=== PATIENT | female | born 1960 | race Caucasian/White ===

== ENCOUNTER 2018-12-18 16:17 | Outpatient (CLI) | payer BC ==
--- NOTE | 2018-12-18 16:44 | CT Report ---
Reason: UNSPECIFIED INJURY OF HEAD Procedure Date: 12/18/2018 Accession Number: [id number] / [id number] Procedure: CT - HEAD WO CPT Code: FULL RESULT: EXAM: CT HEAD EXAM DATE: 12/18/2018 04:22 PM. CLINICAL HISTORY: UNSPECIFIED INJURY OF HEAD. COMPARISON: None. TECHNIQUE: Multiaxial CT images were obtained from the foramen magnum to the vertex. Reformats: Sagittal and coronal. IV contrast: None. In accordance with CT protocol optimization, one or more of the following dose reduction techniques were utilized for this exam: automated exposure control, adjustment of mA and/or KV based on patient size, or use of iterative reconstructive technique. FINDINGS: Parenchyma: No intraparenchymal hemorrhage. No evidence of mass, midline shift, or CT findings of infarction. Nunez-white differentiation is distinct. Extraaxial Spaces: Normal for age. No subdural or epidural collections identified. Ventricles: Normal in size and position. Sinuses and Orbits: Imaged paranasal sinuses, orbits, and mastoids show no significant abnormality. Bones: No evidence of fracture or calvarial defect. Other: There is mild right periorbital soft tissue swelling. IMPRESSION: No acute intracranial CT abnormality. [facility] The call report notification system was initiated by Dr. Parish Cox at 04:43 PM on 12/18/2018.
== END 2018-12-18 16:18 | disposition home or self-care (01) ==
LOC: DI 16:17
PROVIDERS: ATTEND Nurse Practitioner Family
DX: S09.90XA Unspecified injury of head, initial encounter (principal)
CPT/HCPCS: 70450

== ENCOUNTER 2019-04-24 12:52 | Outpatient (CLI) | payer BC ==
--- NOTE | 2019-04-27 12:04 | Mammography Report ---
Reason: ROUTINE MAMMO Procedure Date: 04/24/2019 Accession Number: [id number] / [id number] Procedure: MGS - Screening Mammo Dig Bilat CPT Code: Final Report FULL RESULT: EXAM: Screening Mammo Dig Bilat DATE: 04/24/2019 1:13 PM CLINICAL HISTORY: Routine screening TECHNIQUE: (B) - Bilateral CC and MLO views were obtained. COMPARISON: 03/16/2016, 09/04/2013, 03-24, 02/17/2010 PARENCHYMAL PATTERN: (A) - The breasts demonstrate scattered fibroglandular densities bilaterally. FINDINGS: No significant interval change. There are no suspicious masses, calcifications, or areas of distortion. Scattered benign-appearing calcifications are stable. IMPRESSION: Negative examination. BI-RADS category 1. RECOMMENDATION: (ANNUAL) - Recommend routine annual screening mammography. BI-RADS CATEGORY: (1) - Negative. STANDARD QUALIFYING STATEMENTS: 1. This examination was not reviewed with the aid of Computer-Aided Detection (CAD). 2. A negative or benign imaging report should not preclude biopsy if clinically suspicious findings are present. 3. Dense breasts may obscure an underlying neoplasm. 4. This examination was reviewed without the aid of 3D breast imaging (tomosynthesis).
== END 2019-04-24 12:53 | disposition home or self-care (01) ==
LOC: DI.S 12:52
PROVIDERS: ATTEND Physician Assistant
DX: Z12.31 Encounter for screening mammogram for malignant neoplasm of breast (principal)
CPT/HCPCS: 77067

== ENCOUNTER 2019-04-24 12:53 | Outpatient (CLI) | payer BC ==
--- NOTE | 2019-04-25 18:05 | XRAY Report ---
Reason: LOW BACK PAIN Procedure Date: 04/24/2019 Accession Number: [id number] / [id number] Procedure: XRS - Lumbar Spine 2 View CPT Code: Final Report FULL RESULT: EXAM: LUMBOSACRAL SPINE RADIOGRAPHY EXAM DATE: 04/24/2019 01:32 PM. CLINICAL HISTORY: LOW BACK PAIN. COMPARISONS: None. TECHNIQUE: 3 views. FINDINGS: Alignment: No spondylolisthesis or scoliosis. Bones: Five [id number] lumbar vertebral bodies are present. No fractures or bone lesions. Disks: Disk heights are maintained within the lumbosacral spine. Degenerative diskogenic changes of the lower thoracic spine. Facets: Facet arthropathy at the L4/L5 and L5/S1 levels. Sacroiliac Joints: Unremarkable. Soft Tissues: The visualized bowel gas pattern is normal. IMPRESSION: 1. No evidence for acute osseous injury. 2. Facet arthropathy at the L4/L5 and L5/S1 levels. 3. Degenerative diskogenic changes lower thoracic spine. RAD[facility]
== END 2019-04-24 12:54 | disposition home or self-care (01) ==
LOC: DI.S 12:53
PROVIDERS: ATTEND Physician Assistant
DX: M47.816 Spondylosis without myelopathy or radiculopathy, lumbar region (principal); M47.817 Spondylosis without myelopathy or radiculopathy, lumbosacral region; M51.34 Other intervertebral disc degeneration, thoracic region
CPT/HCPCS: 72100

== ENCOUNTER 2019-11-05 15:39 | Outpatient (CLI) | payer BC ==
--- NOTE | 2019-11-05 16:23 | Ultrasound Report ---
PROCEDURE: Duplex Ext Veins Right INDICATIONS: FIRM MASS ON ANTERIOR R LOWER LEG TECHNIQUE: Real-time imaging, as well as color and pulse Doppler interrogation, were performed of the lower extr emity deep veins from the inguinal ligament to the popliteal fossa. COMPARISON: None. FINDINGS: The deep veins are normally compressible, and free of intraluminal thrombus. Color and pu lse Doppler demonstrate normal phasic intraluminal flow. There is normal augmentation response to di stal compression maneuver. There is a focus of heterogeneous echogenicity identified in the anterolateral right calf. It measure s 20 x 9 x 15 mm. There is no increased vascularity. IMPRESSION: 1. No deep venous thrombosis. 2. Focus of echogenicity within the right calf. The latter could be lead customer service representative of hematoma or abs cess in appropriate setting. Recommend clinical correlation to trauma or infection. Reviewed by: Myra Fernandez MD on 11/05/2019 4:21 PM PDT Approved by: Mrya Fernandez MD on 11/05/2019 4:21 PM PDT Station ID: [id number]
== END 2019-11-05 15:40 | disposition home or self-care (01) ==
LOC: DI 15:39
PROVIDERS: ATTEND Nurse Practitioner Family
DX: R93.6 Abnormal findings on diagnostic imaging of limbs (principal)

== ENCOUNTER 2019-11-09 16:33 | Outpatient (CLI) | payer BC | END 2019-11-09 16:34 | disposition home or self-care (01) | LOC: LAB.S 16:33 | PROVIDERS: ATTEND Physician Assistant | DX: R53.83 Other fatigue (principal); Z20.828 Contact with and (suspected) exposure to other viral communicable diseases | CPT/HCPCS: 81599 ==

== ENCOUNTER 2020-11-28 11:02 | Outpatient (CLI) | payer BC ==
--- NOTE | 2020-11-29 13:44 | Mammography Report ---
BILATERAL DIGITAL SCREENING MAMMOGRAM 3D/2D: 11/28/2020 CLINICAL: Family history of breast cancer. Comparison is made to exams dated: 04/24/2019 mammogram, 03/16/2016 mammogram, and 09/04/2013 mammogra m - [facility]. There are scattered fibroglandular elements in both breasts. No significant masses, calcifications, or other findings are seen in either breast. There has been no significant interval change. IMPRESSION: NEGATIVE There is no mammographic evidence of malignancy. A 1 year screening mammogram is recommended. This exam was interpreted at Station ID: [id number]. NOTE: For mammograms, a report in lay terms will be sent to the patient. Approximately 15% of breast malignancies will not be visualized mammographically. In the management of a palpable breast mass, a negative mammogram must not discourage biopsy of a clinically suspicious lesion. Electronically Signed By: Brandon Aceves M.D. slc/penrad:11/28/2020 12:40:01 ACR BI-RADS Category 1: Negative 3341F PARENCHYMAL PATTERN: (A) - The breast(s) demonstrate(s) scattered fibroglandular densities. BI-RADS CATEGORY: (1) - 1 RECOMMENDATION: (ANNUAL) - Recommend routine annual screening mammography. [id number] 1 year screening LATERALITY: (B)
== END 2020-11-28 11:03 | disposition home or self-care (01) ==
LOC: DI.S 11:02
PROVIDERS: ATTEND Nurse Practitioner Family
DX: Z12.31 Encounter for screening mammogram for malignant neoplasm of breast (principal)

== ENCOUNTER 2020-12-27 12:41 | Day surgery (SDC) | payer BC ==
[2020-12-27] MEDS ORDERED: LACTATED RINGERS 1,000 ML IV ONE ×2 (12:47→14:35)
[2020-12-27] MEDS ORDERED: fentaNYL 250 MCG/5 ML VIAL ONE (14:05)
[2020-12-27] MEDS ORDERED: MIDAZOLAM 2 MG/2 ML VIAL ONE (14:05)
[2020-12-27 14:51] VITALS: BP 99/62
== END 2020-12-27 12:42 | disposition home or self-care (01) ==
LOC: SDS 12:41
PROVIDERS: ATTEND Surgery
DX: Z12.11 Encounter for screening for malignant neoplasm of colon (principal); K64.4 Residual hemorrhoidal skin tags; K64.8 Other hemorrhoids; K57.30 Diverticulosis of large intestine without perforation or abscess without bleeding; Z86.010 Personal history of colon polyps
CPT/HCPCS: 45378; J3010; J7120

== ENCOUNTER 2021-01-10 11:34 | Outpatient (CLI) | payer BC ==
[2021-01-10 15:32] LABS: ALBUMIN 4.2 g/dL (3.2-5.5); ALBUMIN/GLOBULIN RATIO 1.3 (1.0-2.2); ALKALINE PHOSPHATASE 91 IU/L (42-121); ALT ALANINE AMINOTRANSFERASE 40 IU/L (10-60); AST ASPARTATE AMINOTRANSFERASE 34 IU/L (10-42); BILIRUBIN,TOTAL 0.8 mg/dL (0.2-1.0); BUN - BLOOD UREA NITROGEN 15 mg/dL (6-20); CALCIUM 9.1 mg/dL (8.5-10.3); CARBON DIOXIDE - CO2 30 mmol/L (21-32); CHLORIDE 102 mmol/L (101-111); CHOL/HDL RATIO 2.7 (<4.4); CHOLESTEROL 170 mg/dL; CREATININE 0.9 mg/dL (0.4-1.0); GFR - MDRD 63 (>89); GLUCOSE 95 mg/dL (70-100); HDL CHOLESTEROL 62 mg/dL; LDL CHOLESTEROL,CALCULATED 92 mg/dL; LDL/HDL RATIO 1.5 (<4.4); SODIUM 139 mmol/L (135-145); TOTAL PROTEIN 7.4 g/dL (6.7-8.2); TRIGLYCERIDES 80 mg/dL; VLDL CHOLESTEROL 16 mg/dL
== END 2021-01-10 11:35 | disposition home or self-care (01) ==
LOC: LAB.S 11:34
PROVIDERS: ATTEND Nurse Practitioner Family
DX: E78.2 Mixed hyperlipidemia (principal)
CPT/HCPCS: 36415; 80053; 80061; 83721

== ENCOUNTER 2023-04-02 10:54 | Outpatient (CLI) | payer MEDICARE ==
--- NOTE | 2023-04-02 11:11 | CARDIAC PROCEDURE NOTE ---
Stress Test Report Service Date: 04/02/23 Service Time: 11:00 Ordering Provider: Birdie Conklin NP Indication for Test: Risk stratification after a prolonged, severe, near-syncopal episode. Significant Medical History: Birdie has been generally in good health with normal functional status, but experienced a severe near syncopal episode in late January. She reports arising at night to urinate, feeling normal prior, during and after, completing voiding. As is sometimes the case in these situations, she felt thirsty and went to get a drink of water. In her kitchen she felt sudden onset of extreme dizziness/lightheadedness with moderate nausea, prompting her to lay down in a head-down position, with symptoms requiring somewhere between 5 and 10 minutes to fully resolve. She did not experience chest discomfort, diaphoresis or palpitations during this episode and after it finally passed she returned to her normal baseline state, went back to bed and has had no severe episodes since. She reports no prior history of syncope, though she did have a significant pre-syncopal episode approximately 5 years ago for which she underwent rhythm monitoring that was unrevealing. 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 She walks up hills regularly without experiencing chest discomfort, though she does find the hills gradually causing her more shortness of breath. Overall she does not believe that her exercise tolerance is decreasing. She just completed a 13-day CAM patch rhythm monitor study, that showed only low grade ectopy and a single brief episode of atrial tachycardia; she had no symptoms to report by pushing the button. Cardiac Risk Factors: Positive for hyperlipidemia (on treatment with high-dose atorvastatin) as well as possible family history of coronary heart disease (mother with CHF of undetermined etiology in later years and both father and brother with history of cardiac arrhythmia issues); no history of hypertension, diabetes or tobacco smoking ever. Type of Stress Test: ETT with Echocardiography Procedure: -Exercise Treadmill Test- After signing informed consent, the patient underwent echo imaging at rest and then performed treadmill exercise using a Farhan protocol. The patient exercised for 4 minutes 57 seconds and achieved a peak heart rate of 150 (97 percent predicted maximum heart rate for age), and an estimated workload of 7 METS. The test was terminated due to fatigue/shortness of breath. Resting heart rate: 72 Peak heart rate: 150 Normal response to exercise. Resting BP: 142/81 Peak BP: 185/80 Normal BP response to exercise. Rhythm during exercise: Sinus rhythm throughout, without ectopy. Symptoms: Patient denied experiencing any chest pressure/discomfort/pain, dyspnea became limiting. EKG at rest showed normal sinus rhythm, normal in all aspects. EKG at peak stress showed no ischemia by EKG criteria. In Recovery heart rate and blood pressure rapidly/normally decreased towards baseline levels (HR 90, BP 147/77 at 3:41). Echo imaging, performed at rest and with stress, will be reported separately. INoam MD, was present throughout this treadmill stress study and supervised it in its entirety. Summary: 1) Exercise tolerance significantly reduced for age and sex as evidenced by MARANDA of 20%. 2) Normal resting EKG. 3) Adequate level of exercise was achieved on this treadmill stress test. 4) Normal BP response to exercise. 5) No ischemic changes by EKG criteria were seen at peak stress. 6) Echo image interpretation reveals normal left ventricular size, wall thickness and systolic function, with appropriate hyperdynamic augmentation of all segments with exercise, indicating no evidence of prior infarct or inducible ischemia. No significant valvular abnormality or elevation of estimated pulmonary artery systolic pressure seen on screening study. See separate report for more details. Conclusions and Recommendations: 1) No symptom, EKG or echocardiographic evidence of inducible ischemia, though exercise capacity was well below average for age. 2) Given the reassuring results obtained on this treadmill stress echocardiogram study and the recently completed 13-day ambulatory cardiac rhythm monitoring study it would be very reasonable to defer formal Cardiology evaluation with Dr. Abbott at the present time. Should she experience repeated near- syncopal/syncopal episodes, then formal clinical Cardiology evaluation would likely be warranted.
== END 2023-04-02 10:55 | disposition home or self-care (01) ==
LOC: DI 10:54
PROVIDERS: ATTEND Nurse Practitioner Family
DX: R42 Dizziness and giddiness (principal); R11.0 Nausea; E78.5 Hyperlipidemia, unspecified
CPT/HCPCS: 93350